=== PATIENT | female | born 1970 | race Caucasian/White ===

== ENCOUNTER 2018-05-08 17:21 | Inpatient (IN) | payer SELFPAY ==
[~2018-05-08] VITALS: Ht 170.2 cm; Wt 74.9 kg
[2018-05-08] MEDS ORDERED: ceFAZolin 2 GM PREMIX 50 ML ONE (17:32)
[2018-05-08] MEDS ORDERED: DIPHTH/TETANUS/ACEL PERTUSSIS (BOOSTER) 0.5 ML VIAL/PFS IM ONE (17:32)
[2018-05-08 17:35] VITALS: O2SAT 98
[2018-05-08 17:42] LABS: AUTOMATED NEUTROPHIL # 4.3 TH/MM3 (1.8-7.7); BASOPHIL % 0.6 % (0.0-2.0); EOSINOPHIL # 0.1 TH/MM3 (0-0.4); EOSINOPHIL % 1.9 % (0.0-4.0); HEMATOCRIT 32.8 % (35.0-46.0); LYMPH % 33.9 % (9.0-44.0); LYMPHOCYTE # 2.7 TH/MM3 (1.0-4.8); MEAN CELL VOLUME 90.7 FL (80.0-100.0); MEAN CORPUSCULAR HEMOGLOBIN 30.4 PG (27.0-34.0); MEAN CORPUSCULAR HGB CONC 33.5 % (32.0-36.0); MEAN PLATELET VOLUME 7.5 FL (7.0-11.0); MONO % 9.1 % (0.0-8.0); MONOCYTE # 0.7 TH/MM3 (0-0.9); NEUT % 54.5 % (16.0-70.0); PLATELET COUNT 478 TH/MM3 (150-450); RED BLOOD COUNT 3.62 MIL/MM3 (4.00-5.30); RED CELL DISTRIBUTION WIDTH 16.3 % (11.6-17.2)
[2018-05-08] MEDS ORDERED: IOHEXOL 350 MG/ML 10 ML VIAL (for RAD DIAG) IVCONTRAST ONE (17:45)
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
[2018-05-08] MEDS ORDERED: MIDAZOLAM HCL 2 MG/2 ML VIAL ONE (18:29)
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
[2018-05-08] MEDS ORDERED: ONDANSETRON HCL 4 MG/2 ML VIAL ONE (18:44)
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
[2018-05-08 19:41] LABS: HEMATOCRIT 25.8 % (35.0-46.0); HEMOGLOBIN 8.2 GM/DL (11.6-15.3); MEAN CELL VOLUME 90.5 FL (80.0-100.0); MEAN CORPUSCULAR HEMOGLOBIN 28.8 PG (27.0-34.0); MEAN CORPUSCULAR HGB CONC 31.8 % (32.0-36.0); MEAN PLATELET VOLUME 7.2 FL (7.0-11.0); PLATELET COUNT 486 TH/MM3 (150-450); RED BLOOD COUNT 2.85 MIL/MM3 (4.00-5.30); WHITE BLOOD COUNT 11.7 TH/MM3 (4.0-11.0)
--- NOTE | 2018-05-08 20:05 | PD.RAD ---
Post Procedure Progress Note Pre Procedure Diagnosis: (1) Kidney laceration Post Procedure Diagnosis: (1) Kidney laceration Procedure Date: May 08, 2018 Supervising Radiologist: Gomez Leon JR Proceduralist/Assist: Deloris Terrazas, RT(R), Loraine Bradley RT(R) Anesthesia: Conscious Sedation Plan of Activity Patient to Unit: Critical Care Patient Condition: Fair See PACS Report for procedural detail/treatment Vascular-Arterial Procedure Procedure 1 Procedure Site: Right Renal Procedure(s): Angiogram, Embolization Access Access Site(s): Right Femoral Artery Closure Site(s): Right vascular closure device Findings: Selective right renal angio shows multifocal acute hemorrhage from right kidney with successful gelfoam embolization and cessation of hemorrhage. No leak from collecting system seen. Angioseal closure of access. Jr. Edward,Gomez Ruiz MD May 08, 2018 20:05
[2018-05-08] MEDS ORDERED: MAGNESIUM HYDROXIDE SUSP 30 ML CUP PO PRN (20:15)
[2018-05-08] MEDS ORDERED: NURSING INFORMATION XX SCH (20:15)
[2018-05-08] MEDS ORDERED: CHLORHEXIDINE GLUCONATE 2 % 1 PACK (2 CLOTHS) TOP PRN (20:15)
[2018-05-08] MEDS ORDERED: SODIUM CHLORIDE 0.9% FLUSH 10 ML FLUSH IV FLUSH PRN (20:15)
[2018-05-08] MEDS ORDERED: ENALAPRILAT 1.25 MG/ML VIAL IV PUSH PRN (20:15)
[2018-05-08] MEDS ORDERED: ONDANSETRON HCL 4 MG/2 ML VIAL IV PUSH PRN (20:15)
[2018-05-08] MEDS ORDERED: MORPHINE SULFATE 2 MG/ML SYRINGE ONE (20:22)
[2018-05-08] MEDS ORDERED: ONDANSETRON ODT 4 MG TAB PO PRN (20:45)
[2018-05-08] MEDS: PANTOPRAZOLE SODIUM 40 MG VIAL IVP SCH (21:00)
[2018-05-08] MEDS: SODIUM CHLOR 0.9% 1000 ML INJ 1,000 ML IV SCH (21:00)
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
[2018-05-08 23:00] VITALS: BP 137/88; PULSE 78; RESP 22; TEMP 97.6; O2SAT 100
[2018-05-08] MEDS: CHLORHEXIDINE GLUCONATE 2 % 1 PACK (2 CLOTHS) TOP SCH (23:15)
[2018-05-09] VITALS (14 sets, daily range): BP systolic 117–150; BP diastolic 43–96; PULSE 76–105; RESP 16–24; TEMP 97–99.1; O2SAT 97–100
[2018-05-09] MEDS: MORPHINE SULFATE 4 MG/ML INJ IV PUSH PRN ×3 (00:24→18:06)
[2018-05-09] MEDS: SODIUM CHLOR 0.9% 1000 ML INJ 1,000 ML IV SCH ×2 (04:00→19:57)
[2018-05-09 04:14] LABS: AUTOMATED NEUTROPHIL # 9.9 TH/MM3 (1.8-7.7); BASOPHIL # 0.1 TH/MM3 (0-0.2); BASOPHIL % 0.6 % (0.0-2.0); EOSINOPHIL % 0.1 % (0.0-4.0); HEMATOCRIT 33.2 % (35.0-46.0); HEMOGLOBIN 10.8 GM/DL (11.6-15.3); LYMPH % 11.9 % (9.0-44.0); LYMPHOCYTE # 1.5 TH/MM3 (1.0-4.8); MEAN CELL VOLUME 89.3 FL (80.0-100.0); MEAN CORPUSCULAR HEMOGLOBIN 29.1 PG (27.0-34.0); MEAN CORPUSCULAR HGB CONC 32.6 % (32.0-36.0); MEAN PLATELET VOLUME 7.7 FL (7.0-11.0); MONO % 8.1 % (0.0-8.0); NEUT % 79.3 % (16.0-70.0); PLATELET COUNT 429 TH/MM3 (150-450); RED BLOOD COUNT 3.72 MIL/MM3 (4.00-5.30); RED CELL DISTRIBUTION WIDTH 16.2 % (11.6-17.2); WHITE BLOOD COUNT 12.5 TH/MM3 (4.0-11.0)
[2018-05-09 04:32] LABS: ALBUMIN 2.6 GM/DL (3.4-5.0); AST (GOT) 40 U/L (15-37); BICARBONATE 24.2 MEQ/L (21.0-32.0); BLOOD UREA NITROGEN 7 MG/DL (7-18); CALCIUM 7.6 MG/DL (8.5-10.1); CHLORIDE 106 MEQ/L (98-107); CREATININE 0.86 MG/DL (0.50-1.00); GLOMERULAR FILTRATION RATE 57 ML/MIN (>89); GLUCOSE,RANDOM 112 MG/DL (74-106); SODIUM (NA) 139 MEQ/L (136-145)
[2018-05-09 04:36] LABS: ALKALINE PHOSPHATASE 89 U/L (45-117); ALT (GPT) 31 U/L (10-53); TOTAL BILIRUBIN ADULT 1.1 MG/DL (0.2-1.0); TOTAL PROTEIN 7.3 GM/DL (6.4-8.2)
[2018-05-09] MEDS ORDERED: MAGN30S PO (08:07)
[2018-05-09] MEDS ORDERED: PERI PO (08:07)
[2018-05-09] MEDS: DOCUSATE SODIUM 50 MG/SENNA 8.6 MG TAB PO SCH ×2 (08:26→20:31)
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
[2018-05-09] MEDS: PANTOPRAZOLE SODIUM 40 MG VIAL IVP SCH (20:31)
[2018-05-10] VITALS (7 sets, daily range): BP systolic 103–136; BP diastolic 65–89; PULSE 102–111; RESP 16–19; TEMP 97.8–100; O2SAT 96–99
[2018-05-10] MEDS: SODIUM CHLOR 0.9% 1000 ML INJ 1,000 ML IV SCH ×2 (01:51→13:29)
[2018-05-10] MEDS: CHLORHEXIDINE GLUCONATE 2 % 1 PACK (2 CLOTHS) TOP SCH ×2 (04:00→20:05)
[2018-05-10 04:30] LABS: AUTOMATED NEUTROPHIL # 9.8 TH/MM3 (1.8-7.7); BASOPHIL # 0.2 TH/MM3 (0-0.2); BASOPHIL % 1.3 % (0.0-2.0); EOSINOPHIL % 0.3 % (0.0-4.0); HEMATOCRIT 28.7 % (35.0-46.0); HEMOGLOBIN 9.3 GM/DL (11.6-15.3); LYMPH % 14.9 % (9.0-44.0); LYMPHOCYTE # 1.9 TH/MM3 (1.0-4.8); MEAN CELL VOLUME 90.1 FL (80.0-100.0); MEAN CORPUSCULAR HEMOGLOBIN 29.2 PG (27.0-34.0); MEAN CORPUSCULAR HGB CONC 32.5 % (32.0-36.0); MEAN PLATELET VOLUME 7.8 FL (7.0-11.0); MONO % 8.6 % (0.0-8.0); MONOCYTE # 1.1 TH/MM3 (0-0.9); NEUT % 74.9 % (16.0-70.0); PLATELET COUNT 409 TH/MM3 (150-450); RED BLOOD COUNT 3.19 MIL/MM3 (4.00-5.30); RED CELL DISTRIBUTION WIDTH 16.3 % (11.6-17.2)
[2018-05-10] MEDS: MORPHINE SULFATE 4 MG/ML INJ IV PUSH PRN ×2 (04:50→08:41)
[2018-05-10 04:54] LABS: BICARBONATE 23.7 MEQ/L (21.0-32.0); CALCIUM 7.8 MG/DL (8.5-10.1); CREATININE 0.87 MG/DL (0.50-1.00)
[2018-05-10] MEDS ORDERED: IOHEXOL 350 MG/ML 10 ML VIAL (for RAD DIAG) IVCONTRAST ONE (05:13)
--- NOTE | 2018-05-10 05:39 | RADRPT ---
EXAM DATE: 05/10/2018 5:12 AM EDT AGE/SEX: 89 years / Female INDICATIONS: Abdominal pain, evaluate status post right renal embolization. CLINICAL DATA: This is the patient's subsequent encounter. Patient reports that signs and symptoms h ave been present for 2 days and indicates a pain score of 8/10. MEDICAL/SURGICAL HISTORY: . Kidney laceration. None. ORAL CONTRAST: No oral contrast ingested. RADIATION DOSE: 6.64 CTDI (mGy) COMPARISON: [facility] – [place], CT ABDOMEN & PELVIS W CONTRAST, 05/08/2018. . TECHNIQUE: Multiple contiguous axial images were obtained through the abdomen and pelvis following b olus infusion of 100 ml Omnipaque 350 (iohexol) nonionic water-soluble contrast as a single exam do se. No oral contrast ingested. Using automated exposure control and adjustment of the mA and/or kV a ccording to patient size, the radiation dose was kept as low as reasonably achievable to obtain optim al diagnostic quality images. FINDINGS: Lower Lungs: There is a mild right pleural effusion with accompanying atelectasis or consolidation at the right lung base. There is some milder linear atelectasis or consolidation at the posterior media l left lower lung. Liver: There is intrahepatic biliary duct dilatation. There is distention of the gallbladder. There i s a gallstone. The common bile duct appears dilated measuring 1.1 cm. The findings of the biliary sys tem appear new. Spleen: Homogeneous density without enlargement. Pancreas: Unremarkable without mass or calcification. Kidneys: The patient has a large right perinephric hematoma. There appears to be some focal increase d density seen adjacent to the anterior superior right kidney and the posterior mid right kidney conc erning for more active areas of hemorrhage. There is air seen within the anterior superior aspect of the perinephric hematoma. There is cortical enhancement seen throughout much of the right mid and low er kidney. There is more areas of cortical infarction seen. The most prominent area of infarction are seen superiorly. There are areas of infarct at the posterior mid and to a lesser degree, the anteri or medial mid right kidney, and at the inferior lateral right kidney. No hydronephrosis identified. Contrast is seen within the collecting system on the delayed images on the right. There is a 0.6 cm c yst at the posterior left upper kidney and a 1 cm cyst at the inferior medial left kidney. There is a 0.4 cm nonobstructing left renal stone . Adrenal Glands: Unremarkable. Aorta: Scattered arterial calcifications are seen without aneurysm. Bowel/Mesentery: There is a mild amount of ascites seen in the pelvis. The bowel loops are grossly un remarkable. The cecum and sigmoid colon have a normal configuration. Abdominal Wall: Intact. Retroperitoneum: Again noted is the extremely large right perinephric hematoma. It extends into the right iliac fossa region. The common iliac veins appear to combine to an IVC and then there are bilat eral IVC seen. The left IVC extends to the left renal vein. Bladder: There is a Reinoso catheter present. Reproductive Organs: There is a 5.4 x 2.3 x 2.4 cm cyst seen in the left adnexa. Inguinal: The inguinal region is unremarkable without evidence of adenopathy. Bony Structures: Unremarkable. CONCLUSION: 1. Large right perinephric hematoma. There are small areas of increased density seen at the anterior superior and posterior inferior regions of the hematoma concerning for active hemorrhage. 2. Status post right renal embolization with areas infarction involving portions of the left of the superior, and portions of the mid and inferior right kidney. 3. New intrahepatic and extra hepatic biliary duct dilatation with distention of the gallbladder. Th ere is a gallstone. The right perinephric hematoma could be causing some impression on the extrahepat ic biliary system. 4. Nonobstructing 0.4 cm left renal stone. 5. 5.4 cm cystic area seen in the left adnexa. 6. Mild peritoneal fluid seen in the pelvis. Electronically signed by: Aden Humphrey MD 05/10/2018 5:37 AM EDT
[2018-05-10] MEDS ORDERED: METOPROLOL TARTRATE 25 MG TAB PO PRN (07:30)
[2018-05-10] MEDS ORDERED: LACTATED RINGER'S 1000 ML IV PRN (07:30)
[2018-05-10] MEDS ORDERED: CHLORHEXIDINE GLUCONATE 2 % 1 PACK (2 CLOTHS) TOPICAL PRN (07:30)
[2018-05-10] MEDS ORDERED: POVIDONE IODINE 5% (ANTISEPSIS KIT) 4 APPLICATIONS EACH NARE PRN (07:30)
[2018-05-10] MEDS ORDERED: SODIUM CHLORID 0.9% 500 ML IV PRN (07:30)
[2018-05-10] MEDS: DOCUSATE SODIUM 50 MG/SENNA 8.6 MG TAB PO SCH ×2 (07:41→20:53)
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
[2018-05-10 18:41] LABS: HEMATOCRIT 30.2 % (35.0-46.0); HEMOGLOBIN 9.8 GM/DL (11.6-15.3)
[2018-05-10] MEDS: PANTOPRAZOLE SODIUM 40 MG VIAL IVP SCH (20:53)
[2018-05-11 03:32] VITALS: BP 127/85; PULSE 98; RESP 18; TEMP 99.7; O2SAT 98
[2018-05-11] MEDS: SODIUM CHLOR 0.9% 1000 ML INJ 1,000 ML IV SCH ×2 (04:03→15:21)
[2018-05-11 06:24] LABS: AUTOMATED NEUTROPHIL # 6.7 TH/MM3 (1.8-7.7); BASOPHIL % 0.4 % (0.0-2.0); EOSINOPHIL % 0.5 % (0.0-4.0); HEMATOCRIT 27.1 % (35.0-46.0); LYMPH % 20.3 % (9.0-44.0); MEAN CELL VOLUME 89.4 FL (80.0-100.0); MEAN CORPUSCULAR HEMOGLOBIN 29.7 PG (27.0-34.0); MEAN CORPUSCULAR HGB CONC 33.2 % (32.0-36.0); MEAN PLATELET VOLUME 7.4 FL (7.0-11.0); MONO % 9.9 % (0.0-8.0); NEUT % 68.9 % (16.0-70.0); PLATELET COUNT 383 TH/MM3 (150-450); RED BLOOD COUNT 3.03 MIL/MM3 (4.00-5.30); RED CELL DISTRIBUTION WIDTH 16.1 % (11.6-17.2); WHITE BLOOD COUNT 9.8 TH/MM3 (4.0-11.0)
[2018-05-11 06:54] LABS: BICARBONATE 26.2 MEQ/L (21.0-32.0); CALCIUM 8.1 MG/DL (8.5-10.1)
[2018-05-11] MEDS: DOCUSATE SODIUM 50 MG/SENNA 8.6 MG TAB PO SCH (07:42)
[2018-05-11 08:00] VITALS: BP 117/74; PULSE 91; RESP 15; TEMP 98.5; O2SAT 100
[2018-05-11] MEDS ORDERED: PERC5TAB12 PO (11:54)
[2018-05-11 12:00] VITALS: BP 108/72; PULSE 100; RESP 16; TEMP 97.8; O2SAT 99
[2018-05-11] MEDS ORDERED: ONDANSETRON ODT 4 MG TAB PO PRN (15:52)
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
[2018-05-15] MEDS ORDERED: CHLORHEXIDINE GLUCONATE 2 % 1 PACK (2 CLOTHS) TOP PRN (04:45)
[2018-05-15] MEDS ORDERED: BISACODYL 10 MG SUPP RECTAL PRN (04:45)
[2018-05-15] MEDS ORDERED: LACTULOSE SYRUP 20 GM/30 ML CUP PO PRN (04:45)
[2018-05-15] MEDS ORDERED: NURSING INFORMATION XX SCH (04:45)
[2018-05-15] MEDS ORDERED: MAGNESIUM HYDROXIDE SUSP 30 ML CUP PO PRN (04:45)
[2018-05-15] MEDS ORDERED: SENNOSIDES 8.6 MG TAB PO PRN (04:45)
[2018-05-15] MEDS ORDERED: SODIUM CHLOR 0.9% 1000 ML INJ 1,000 ML IV SCH (05:00)
[2018-05-15] MEDS ORDERED: DOCUSATE SODIUM 50 MG/SENNA 8.6 MG TAB PO SCH (09:00)
[2018-05-16] MEDS ORDERED: CHLORHEXIDINE GLUCONATE 2 % 1 PACK (2 CLOTHS) TOP SCH (04:00)
== END 2018-05-11 15:52 | disposition home or self-care (01) | DRG 674 ==
LOC: NEPI 17:21 → EDBD 18:13 → NEDA 18:13 → N03B 22:45 → N06A 05-09 09:06
PROVIDERS: ADMIT Surgery; ATTEND Surgery
PROC: 30233N1 Transfusion of Nonautologous Red Blood Cells into Peripheral Vein, Percutaneous Approach (ICD-10-PCS; 2018-05-08)
PROC: 04L93DZ Occlusion of Right Renal Artery with Intraluminal Device, Percutaneous Approach (ICD-10-PCS; principal; 2018-05-09)
PROC: B416YZZ Fluoroscopy of Right Renal Artery using Other Contrast (ICD-10-PCS; 2018-05-09)
PROC: B4161ZZ Fluoroscopy of Right Renal Artery using Low Osmolar Contrast (ICD-10-PCS; 2018-05-09)
DX: S37.051A Moderate laceration of right kidney, initial encounter (principal); N28.0 Ischemia and infarction of kidney; S51.811A Laceration without foreign body of right forearm, initial encounter; S00.81XA Abrasion of other part of head, initial encounter; K80.20 Calculus of gallbladder without cholecystitis without obstruction; K76.89 Other specified diseases of liver; Q27.9 Congenital malformation of peripheral vascular system, unspecified; F17.200 Nicotine dependence, unspecified, uncomplicated; F10.10 Alcohol abuse, uncomplicated; F19.10 Other psychoactive substance abuse, uncomplicated; V86.55XA Driver of 3- or 4- wheeled all-terrain vehicle (ATV) injured in nontraffic accident, initial encounter; Z88.0 Allergy status to penicillin; Z88.6 Allergy status to analgesic agent
CPT/HCPCS: 36245; 36253; 36430; 37243; 70450; 71045; 71260; 72125; 72170; 74177; 75705; 75774; 76937; 80048; 80053; 85014; 85018; 85025; 85027; 85610; 85730; 86850; 86900; 86901; 86920; 90471; 90715; 94150; 96374; 99152; 99153; 99291; C1760; C1769; C1887; C1894; C9113; G0390; J0690; J2250; J2270; J2405; J3010; J7030; P9016; Q9967

== ENCOUNTER 2018-05-15 03:12 | Inpatient (IN) | payer OTHER ==
[2018-05-15] VITALS (8 sets, daily range): BP systolic 106–121; BP diastolic 65–84; PULSE 86–101; RESP 13–21; TEMP 98.2–99.3; O2SAT 97–98
[~2018-05-15] VITALS: Ht 170.2 cm; Wt 72.4 kg
[~2018-05-15 03:12] MED LIST: MAGN30S PO; PERC5TAB12 PO; PERI PO
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
[2018-05-15] MEDS ORDERED: IOHEXOL 350 MG/ML 10 ML VIAL (for RAD DIAG) IVCONTRAST ONE (04:14)
[2018-05-15 04:17] LABS: AUTOMATED NEUTROPHIL # 9.8 TH/MM3 (1.8-7.7); BASOPHIL # 0.1 TH/MM3 (0-0.2); BASOPHIL % 0.6 % (0.0-2.0); EOSINOPHIL % 0.3 % (0.0-4.0); HEMATOCRIT 24.9 % (35.0-46.0); HEMOGLOBIN 7.9 GM/DL (11.6-15.3); LYMPH % 20.7 % (9.0-44.0); LYMPHOCYTE # 2.9 TH/MM3 (1.0-4.8); MEAN CELL VOLUME 90.4 FL (80.0-100.0); MEAN CORPUSCULAR HEMOGLOBIN 28.7 PG (27.0-34.0); MEAN CORPUSCULAR HGB CONC 31.8 % (32.0-36.0); MEAN PLATELET VOLUME 7.5 FL (7.0-11.0); MONO % 7.1 % (0.0-8.0); NEUT % 71.3 % (16.0-70.0); PLATELET COUNT 479 TH/MM3 (150-450); RED BLOOD COUNT 2.76 MIL/MM3 (4.00-5.30); RED CELL DISTRIBUTION WIDTH 16.2 % (11.6-17.2); WHITE BLOOD COUNT 13.8 TH/MM3 (4.0-11.0)
[2018-05-15 04:25] LABS: BICARBONATE 25.1 MEQ/L (21.0-32.0); CALCIUM 7.5 MG/DL (8.5-10.1); CREATININE 0.85 MG/DL (0.50-1.00)
[2018-05-15] MEDS ORDERED: SODIUM CHLOR 0.9% 250 ML INJ 250 ML IV ONE (04:30)
--- NOTE | 2018-05-15 04:31 | RADRPT ---
EXAM DATE: 05/15/2018 4:18 AM EDT AGE/SEX: 47 years / Female INDICATIONS: Severe abdominal pain, patient has right kidney laceration. Evaluate for active bleedin g. CLINICAL DATA: This is the patient's initial encounter. Patient reports that signs and symptoms have been present for 3 days and indicates a pain score of 10/10. MEDICAL/SURGICAL HISTORY: . Right kidney laceration. . Right kidney embolization. ORAL CONTRAST: No oral contrast ingested. RADIATION DOSE: 6.64 CTDI (mGy) COMPARISON: [facility], CT ABDOMEN & PELVIS W CONTRAST, 05/10/2018. . TECHNIQUE: Multiple contiguous axial images were obtained through the abdomen and pelvis following b olus infusion of 50 ml Omnipaque 350 (iohexol) nonionic water-soluble contrast as a single exam dos e. No oral contrast ingested. Using automated exposure control and adjustment of the mA and/or kV ac cording to patient size, radiation dose was kept as low as reasonably achievable to obtain optimal di agnostic quality images. DICOM format image data is available electronically for review and comparis on. FINDINGS: Lower Lungs: Mild atelectasis both lung bases. Liver: The liver has a homogeneous density without space-occupying lesion other than area of hyperint ensity in the right lobe of liver inferiorly can be a small hemangioma.. There is no dilation of the biliary tree. Gallstone is present. Spleen: Homogeneous density without enlargement. Pancreas: Unremarkable without mass or calcification. Kidneys: Arterial phase was performed. There is contrast in the collecting systems. The left kidney is unremarkable. There is significant hemorrhage remaining in and around the right kidney. In the upp er pole patient ill-defined area of hemorrhage measuring 3.7 x 2 cm across. It is less dense and smal ler than it was on the 15th. There is a significant rim of hemorrhage around the right kidney. After 15 minute delayed imaging was performed through the right kidney. Again significant extravasation is identified. There again is hemorrhage noted in the upper pole of the right kidney and significant buddy unt of hemorrhage around the right kidney extending up to the IVC left kidney remains unremarkable. Adrenal Glands: Unremarkable. Aorta: The aorta and proximal iliac vessels are grossly unremarkable without aneurysmal dilation. Bowel/Mesentery: The bowel loops are grossly unremarkable. The cecum and sigmoid colon have a normal configuration. Abdominal Wall: Intact. Retroperitoneum: No evidence of adenopathy in the retrocrural, para-aortic, or deep pelvic regions. Bladder: Contours are smooth. Some free fluid in the pelvis, considerably improved since the Reproductive Organs: No abnormal masses or calcifications seen. Inguinal: The inguinal region is unremarkable without evidence of adenopathy. Bony Structures: Unremarkable. CONCLUSION: 1. The patient again has very significant amounts of hemorrhage in and around the right kidney howev er I do not see any active extravasation on the arterial phase or delayed images. The enhancement of the right kidney is very inhomogeneous. Left kidney is unremarkable. Considerably less free fluid in the pelvis Electronically signed by: Melquiades Flor MD 05/15/2018 4:29 AM EDT
[2018-05-15] MEDS ORDERED: SODIUM CHLOR 0.9% 1000 ML INJ 1,000 ML IV SCH (04:38)
[2018-05-15] MEDS ORDERED: CHLORHEXIDINE GLUCONATE 2 % 1 PACK (2 CLOTHS) TOP PRN (04:45)
[2018-05-15] MEDS ORDERED: NURSING INFORMATION XX SCH (04:45)
[2018-05-15] MEDS ORDERED: BISACODYL 10 MG SUPP RECTAL PRN (04:45)
[2018-05-15] MEDS ORDERED: SENNOSIDES 8.6 MG TAB PO PRN (04:45)
[2018-05-15] MEDS ORDERED: LACTULOSE SYRUP 20 GM/30 ML CUP PO PRN (04:45)
[2018-05-15] MEDS ORDERED: MAGNESIUM HYDROXIDE SUSP 30 ML CUP PO PRN (04:45)
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
--- NOTE | 2018-05-15 05:15 | RADRPT ---
EXAM DATE: 05/15/2018 4:59 AM EDT AGE/SEX: 47 years / Female INDICATIONS: Cough. CLINICAL DATA: This is the patient's initial encounter. Patient reports that signs and symptoms have been present for 1 day and indicates a pain score of Nonresponsive. MEDICAL/SURGICAL HISTORY: Non-responsive. Non-responsive. COMPAR[place]: [facility] [place], 05/08/[place]. . FINDINGS: A single AP view of the chest demonstrates the lungs to be symmetrically aerated without evidence of mass, infiltrate or effusion. The cardiomediastinal contours are unremarkable. Osseous structures a re intact. CONCLUSION: Unremarkable single view the chest Electronically signed by: Melquiades Flor MD 05/15/2018 5:14 AM EDT
[2018-05-15] MEDS: DOCUSATE SODIUM 50 MG/SENNA 8.6 MG TAB PO SCH ×2 (09:00→21:19)
[2018-05-15] MEDS: FAMOTIDINE 20 MG TAB PO SCH ×2 (09:00→21:19)
[2018-05-15] MEDS ORDERED: oxyCODONE/ACETAMINOPHEN 5 MG/325 MG TAB PO PRN (10:30)
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
[2018-05-15 13:31] LABS: HEMATOCRIT 32.1 % (35.0-46.0); HEMOGLOBIN 10.7 GM/DL (11.6-15.3)
[2018-05-15] MEDS: oxyCODONE/ACETAMINOPHEN 7.5 MG/325 MG TAB PO PRN (21:19)
[2018-05-16] VITALS: BP 136/84; PULSE 86; RESP 24; TEMP 98.4; O2SAT 96
[2018-05-16 03:48] LABS: HEMOGLOBIN 10.7 GM/DL (11.6-15.3)
[2018-05-16 04:00] VITALS: BP 135/85; PULSE 92; RESP 21; TEMP 98.7; O2SAT 99
[2018-05-16] MEDS ORDERED: CHLORHEXIDINE GLUCONATE 2 % 1 PACK (2 CLOTHS) TOP SCH (04:00)
[2018-05-16] MEDS: oxyCODONE/ACETAMINOPHEN 7.5 MG/325 MG TAB PO PRN ×5 (04:07→22:13)
[2018-05-16 08:00] VITALS: BP 122/82; PULSE 87; RESP 20; TEMP 98.7; O2SAT 100
[2018-05-16] MEDS: DOCUSATE SODIUM 50 MG/SENNA 8.6 MG TAB PO SCH ×2 (08:14→22:13)
[2018-05-16] MEDS: FAMOTIDINE 20 MG TAB PO SCH ×2 (08:14→22:13)
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
[2018-05-16 12:00] VITALS: BP 132/90; PULSE 88; RESP 12; TEMP 98.9; O2SAT 98
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
[2018-05-16 16:00] VITALS: BP 108/84; PULSE 80; RESP 16; TEMP 97.5; O2SAT 93
[2018-05-16 20:00] VITALS: BP 132/84; PULSE 87; RESP 17; TEMP 97.8; O2SAT 100
[2018-05-17] VITALS: BP 124/78; PULSE 71; RESP 17; TEMP 97; O2SAT 100
[2018-05-17 05:57] LABS: AUTOMATED NEUTROPHIL # 5.8 TH/MM3 (1.8-7.7); BASOPHIL # 0.1 TH/MM3 (0-0.2); BASOPHIL % 1.2 % (0.0-2.0); EOSINOPHIL # 0.1 TH/MM3 (0-0.4); EOSINOPHIL % 1.1 % (0.0-4.0); HEMATOCRIT 33.2 % (35.0-46.0); LYMPH % 28.3 % (9.0-44.0); LYMPHOCYTE # 2.7 TH/MM3 (1.0-4.8); MEAN CELL VOLUME 89.7 FL (80.0-100.0); MEAN CORPUSCULAR HEMOGLOBIN 29.7 PG (27.0-34.0); MEAN CORPUSCULAR HGB CONC 33.1 % (32.0-36.0); MEAN PLATELET VOLUME 7.7 FL (7.0-11.0); MONO % 8.3 % (0.0-8.0); MONOCYTE # 0.8 TH/MM3 (0-0.9); NEUT % 61.1 % (16.0-70.0); PLATELET COUNT 628 TH/MM3 (150-450); RED CELL DISTRIBUTION WIDTH 15.9 % (11.6-17.2); WHITE BLOOD COUNT 9.5 TH/MM3 (4.0-11.0)
[2018-05-17 06:02] LABS: BICARBONATE 25.4 MEQ/L (21.0-32.0); CALCIUM 8.3 MG/DL (8.5-10.1); CREATININE 1.06 MG/DL (0.50-1.00)
[2018-05-17 08:00] VITALS: BP 129/86; PULSE 88; RESP 18; TEMP 97.9; O2SAT 98
[2018-05-17] MEDS: oxyCODONE/ACETAMINOPHEN 7.5 MG/325 MG TAB PO PRN (08:25)
[2018-05-17] MEDS: DOCUSATE SODIUM 50 MG/SENNA 8.6 MG TAB PO SCH (08:25)
[2018-05-17] MEDS: FAMOTIDINE 20 MG TAB PO SCH (08:25)
[2018-05-17 08:51] LABS: BANDS 9 % (0-6); BASOPHILS 1 % (0-2); LYMPHOCYTES 26 % (9-44); METAMYELOCYTES 1 % (0-1); MONOCYTES 10 % (0-8); MYELOCYTES 1 % (0-0); NEUTROPHIL # MANUAL DIFF 5.8 TH/MM3 (1.8-7.7); POLYS (SEG NEUTROPHILS) 50 % (16-70)
[2018-05-17 08:52] LABS: OVALOCYTES 1+ (NORMAL)
[2018-05-17 12:00] VITALS: BP 110/77; PULSE 86; RESP 16; TEMP 97.7; O2SAT 99
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
== END 2018-05-17 14:05 | disposition home or self-care (01) | DRG 950 ==
LOC: NEPE 03:12 → NEDA 04:32 → N03A 05:33 → N07A 05-16 15:02
PROVIDERS: ADMIT Surgery Trauma Surgery; ATTEND Surgery Trauma Surgery
PROC: 30233N1 Transfusion of Nonautologous Red Blood Cells into Peripheral Vein, Percutaneous Approach (ICD-10-PCS; principal; 2018-05-15)
DX: S37.02 Major contusion of kidney (principal); F17.200 Nicotine dependence, unspecified, uncomplicated; S37.06 Major laceration of kidney; V86.99XD Unspecified occupant of other special all-terrain or other off-road motor vehicle injured in nontraffic accident, subsequent encounter
CPT/HCPCS: 36430; 71045; 74177; 80048; 85007; 85014; 85018; 85025; 85027; 86850; 86900; 86901; 86920; 94150; J7030; J7050; P9016; Q9967